=== PATIENT | male | born 1955 | race Caucasian/White ===

== ENCOUNTER 2017-10-07 11:06 | Inpatient (IN) | payer OTHER ==
[~2017-10-07] VITALS: Ht 172.7 cm; Wt 103.2 kg
--- NOTE | ~2017-10-07 | TEE ---
PATIENT:CATHY IGNACIO MEDICAL RECORD: [id number] LOCATION:[place] [address] AGE OF PATIENT: 62 ADMISSION DATE: 10/07/17 SEX: M REFERRING PHYSICIAN: INTERPRETING PHYSICIAN: ULISSES BROOKS MD TRANSESOPHAGEAL ECHOCARDIOGRAM Date: 10/09/17 JING CHARGE Y INDICATIONS: CABG PREMEDICATIONS: PATIENT'S RESPONSE PROCEDURE DOPPLER MEASUREMENTS: LVIT LA PA RA LVOT RVOT Asc. Ao AV Gradient Peak AV Mean AV Area MV Gradient Peak MV Mean MV Area INTERPRETATION: LVD: 3.4 LVS: 2.4 Doppler: 2-D: COLOR FLOW DOPPLER NORMAL SALINE STUDY: MISCELLANOUS: DIAGNOSIS: PLAN: Cashier Credit:Keiry Nguyen [employer] Coop: Kerry THOMPSON COMMENTS: DATE OF SERVICE: 10/09/2017 PROCEDURE: Transesophageal echo evaluation of valvular structures during bypass surgery. FINDINGS: 1. Left ventricular chamber size is within normal limits. Left ventricular systolic function is normal. Overall ejection fraction estimated 60%. 2. Left atrium, right atrium, and right ventricle chamber sizes are mildly TRANSESOPHAGEAL ECHOCARDIOGRAM REPORT [id number] CATHY IGNACIO dilated. 3. Valvular structures have normal structure and motion. 4. Doppler interrogation reveals iyeo-ra-bowavdfw mitral regurgitation, mild tricuspid regurgitation, no other valvular insufficiency or stenosis. 5. No evidence of pericardial effusion or left ventricular thrombus. TRANSINT:[id number] Voice Confirmation ID: [id number] DOCUMENT ID: [id number] at 1642 CC: [id number] DICTATION DATE: 10/09/17 1114 TAX ACCOUNTING MANAGER: 10/09/17 1349 ADM IN [place] [id number] [place] [address]
--- NOTE | ~2017-10-07 | OP ---
PATIENT NAME: CATHY IGNACIO MEDICAL RECORD: [id number] :59 LOCATION:[facility] D.CV05 ADMISSION DATE:10/07/17 SURGEON: COLE RFANCO MD DATE OF OPERATION: 10/09/2017 SURGEON: Cole Franco MD ANESTHESIA: General endotracheal, Dr. Hawkins. OPERATION PERFORMED: Coronary artery bypass: 1. Left internal thoracic to left anterior descending. 2. Reverse saphenous vein graft to the posterior descending coronary artery, reverse saphenous vein graft to the first diagonal coronary artery, and reverse saphenous vein graft to the ramus coronary artery. PREOPERATIVE DIAGNOSIS: Unstable angina. POSTOPERATIVE DIAGNOSIS: Unstable angina. INDICATION FOR OPERATION: Unstable angina, severe occlusive coronary artery disease and left main. FINDINGS AT OPERATION: The left internal thoracic and reverse saphenous vein segments were of excellent quality. The target vessels were severely and diffusely diseased. The 2 distal obtuse marginals were too small to graft. The posterior descending was graftable beyond the stenotic area. The left anterior descending and first diagonal were of good caliber as was the ramus coronary artery. ESTIMATED BLOOD LOSS: Cell Saver was used. DESCRIPTION OF PROCEDURE: After informed consent, adequate preoperative medication evaluation, the patient was brought to the operating room, placed on the table in the supine position. After induction of general endotracheal anesthesia and application of appropriate monitoring devices, the chest, neck, abdomen, and both legs were prepped and draped in a sterile field, utilizing Betadine scrub, alcohol, and Betadine solution. A Betadine-impregnated drape was also used. Saphenous vein was harvested from the right thigh and prepared for reverse saphenous vein grafting. Leg was closed over drains utilizing 3-0 Vicryl and skin louis. A median sternotomy incision was used and dissection carried down to the fascia. Hemostasis maintained with electrocautery. Sternum was divided. Innominate vein was identified and protected. Left internal thoracic was taken down and prepared for grafting. The patient was given a calculated dose of heparin, cannulated in the standard fashion utilizing 1 aortic, one two-stage cannula in the atrium and inferior vena cava. The patient was placed on cardiopulmonary bypass, cooled to 32 degrees centigrade. A cross clamp was placed just proximal to the aortic cannula and the patient was given cardioplegic solution through the aortic root. The patient was given a cold induction and cold maintenance. The patient was given cold intermittent cardioplegic solution throughout the procedure through the grafts, through the root or a combination of both. The first vessel to be grafted was the first diagonal. It was grafted end-to-side utilizing a running 7-0 Prolene suture. Graft was measured back to the aorta and the proximal anastomosis fashioned utilizing running 6-0 Prolene suture. Next, the posterior descending was grafted end-to-side utilizing running 7-0 Prolene suture. Graft was measured OPERATIVE REPORT [id number] CATHY IGNACIO back to the aorta and a proximal anastomosis fashioned utilizing running 6-0 Prolene suture. Next, the ramus was grafted end-to-side utilizing a running 7-0 Prolene suture. Graft was measured back to the aorta and a proximal anastomosis fashioned utilizing running 6-0 Prolene suture. Left internal thoracic was brought to the hole in pericardium, sutured to left anterior descending end-to-side utilizing a running 8-0 Prolene suture. All maneuvers to remove trapped air were performed. The patient was given warm cardioplegic reperfusion and controlled reperfusion. The patient rewarmed to 37 degrees centigrade. Two atrial and 2 ventricular pacing wires were placed in the heart and brought out through the epigastric area. The patient was weaned from cardiopulmonary bypass. After being stable off bypass, was given calculated dose of protamine to reverse the heparin. Hemostasis was achieved. A #40 right angle and #36 chest tubes were brought in through the epigastric area and placed in mediastinum. A separate left pleural Enio drain was placed and connected to bulb suction. Chest was again irrigated. Instrument count and sponge count were correct times 2. Chest was closed in layers utilizing #7 wire on the sternum, #2 Vicryl on linea alba and pectoralis fascia. Subcutaneous tissue was approximated with 3-0 Vicryl and skin approximated with 3-0 subcuticular Vicryl. Sterile dressings were applied. The patient tolerated the procedure well and transferred to cardiovascular recovery in stable condition. TRANSINT:[id number] Voice Confirmation ID: [id number] DOCUMENT ID: [id number] COLE FRANCO MD at 1230 CC: [id number] DICTATION DATE: 10/09/17 152 ASSAYER HELPER: 10/09/17 1536 DIS IN 10/15/17 [facility] [address] [place] [address]
--- NOTE | ~2017-10-07 | HEMODYNAMI ---
PATIENT:CATHY IGNACIO MEDICAL RECORD: [id number] : 59 LOCATION:[facility] ADMISSION DATE: 10/07/17 Generatedon:10/07/201714:20 Patient name: CATHY IGNACIO Patient #: [id number] SSN: : 1955 Date of study: 10/07/2017 Page: Of Hemodynamic Procedure Report Patient Data Patient Demographics Procedure consent was obtained First Name: CATHY Gender: Male Last Name: MATEUS : 1955 Patient #: [id number] Age: 62 year(s) Race: Unknown Additional ID: [id number] Contact details Address: [place] [address] State: [place] City: [place] Zip code: [address] Past Medical History Allergies: No known allergies Admission Admission Data Admission Date: 10/07/2017 Admission Time: 11:06 Height (in.): 69 BSA: 2.1 (m2) Height (cm.): 175.26 BMI: 30.57 (kg/m2) Weight (lbs.): 207 Weight (kg.): 93.89 Lab Results Lab Result Date: 10/07/2017 Lab Result Time: 0:00 Biochemistry Name Units Result Min Max BUN mg/dl 19 --(----)*- 7 18 Creatinine mg/dl 1.1 --(--*-)-- 0.6 1.3 CBC Name Units Result Min Max Hemoglobin g/dl 13.5 --(*---)-- 13.5 17.5 Procedure Procedure Types Cath Procedure Diagnostic Procedure LHC LHC w/Coronaries Procedure Description Procedure Date Procedure Date: 10/07/2017 Procedure Start Time: 13:52 Procedure End Time: 14:19 Procedure Staff Name Function Daniel Nguyen MD Performing Physician Ramsey Schulte RT Monitor Geronimo Valdez RN Nurse Carey Ruiz RT Scrub Procedure Data Cath Procedure Fluoroscopy Diagnostic fluoroscopy Total fluoroscopy Time: 6.7 time: 6.7 min min Diagnostic fluoroscopy Total fluoroscopy dose: 841 dose: 841 mGy mGy Contrast Material Contrast Material Type Amount (ml) Isovue 300 63 Entry Location Entry Primary Successful Side Size Upsize Upsize Entry Closure Woodard ccessful Closure Location (Fr) 1 (Fr) 2 (Fr) Remarks Device Remarks Radial Right 6 Fr Mechanical artery Short Compression Diagnostic catheters Device Type Used For End Catheter Placement DIAGNOSTIC Giovanni 110cm Left Coronary 5Fr catheter ([id number]) Angiography DIAGNOSTIC Baldwin 110cm 5 Left Coronary Fr catheter ([id number]) Angiography Procedure Complications No complications Procedure Medications Medication Administration Route Dosage 0.9% NaCl I.V. 100 ml/hr Oxygen etCO2 Nasal cannula 2 l/min Heparin Flush Bag added to field 2 bags (1000units/500ml NS) Lidocaine 2% added to field 20 Radial Cocktail added to field 1 syringe (Verapomil 2mg/Nitro 400mcg/Heparin 1500units) Versed I.V. 2 mg Fentanyl I.V. 100 mcg Versed I.V. 2 mg Radial Cocktail I.A. 1 syringe (Verapomil 2mg/Nitro 400mcg/Heparin 1500units) Versed I.V. 1 mg Fentanyl I.V. 100 mcg Versed I.V. 1 mg Hemodynamics Rest BSA: 2.1 (m2) O2 Consumption: Estimated: 254.09 (ml/min) O2 Consumption indexed: Estimated:121 (ml/min/m) Heart Rate: 79 (bpm) Pressure Samples Time Site Value (mmHg) Purpose Heart Use Rate(bpm) 13:59 LV 144/-2,18 EDP 79 13:59 AO 112/74(92) Pullback 73 13:59 LV 133/2,10 Pullback 73 Gradients Valve Time Site 1 Site 2 Mean SEP/DFP Peak To Heart Use (mmHg) (sec/min) Peak Rate (mmHg) (bpm) Aortic 13:59 LV AO 9 15 21 73 133/2,10 112/74(92) Calculations Valve P-P Mean Valve Index Valve Source Name Gradient Area Flow (cm2) Aortic 21 9 21 9 Snapshots Pre Cath Intra NCS Post Cath Vital Signs Time Heart Resp SPO2 etCO2 NIBP (mmHg) Rhythm Pain Sedation Rate (ipm) (%) (mmHg) Status Level (bpm) 13:49:53 77 19 100 34.3 139/88(113) NSR 0 (11) 10(A) , No pain 13:54:40 81 14 98 37.3 133/77(103) NSR 0 (11) 10(A) , No pain 13:59:27 78 16 96 35.8 113/66(102) NSR 0 (11) 10(A) , No pain 14:04:09 75 16 89 36.6 110/70(88) NSR 0 (11) 10(A) , No pain 14:08:50 68 19 96 35.1 128/74(107) NSR 0 (11) 10(A) , No pain 14:13:35 76 14 98 38.1 114/72(96) NSR 0 (11) 10(A) , No pain Medications Time Medication Route Dose Verified Delivered Reason Notes Effectiveness by by 13:46:27 0.9% NaCl I.V. 100 Geronimo Geronimo Per ml/hr José Miguel Valdez physician RN RN 13:46:36 Oxygen etCO2 2 l/min Geronimo Geronimo Per Nasal José Miguel Valdez physician cannula RN RN 13:46:48 Heparin Flush added 2 bags Geronimo Geronimo used for Bag to José Miguel Valdez procedure (1000units/500ml RN RN NS) 13:46:59 Lidocaine 2% added 20ml Geronimo Geronimo for local to vial Lorigan José Miguel anesthetic RN RN 13:47:14 Radial Cocktail added 1 Geronimo Geronimo used for (Verapomil to syringe José Miguel Valdez procedure 2mg/Nitro field NICOLAS RN 400mcg/Heparin 1500units) 13:53:14 Versed I.V. 2 mg Geronimo Geronimo for sedation José Miguel Valdez RN RN 13:53:20 Fentanyl I.V. 100 mcg Geronimo Geronimo for sedation José Miguel Valdez RN RN 13:56:08 Versed I.V. 2 mg Geronimo Geronimo for sedation José Miguel Valdez RN RN 13:57:24 Radial Cocktail I.A. 1 Geronimo Daniel for (Verapomil syringe José Miguel woods 2mg/Rene RN 400mcg/Heparin 1500units) 13:59:17 Versed I.V. 1 mg Geronimo Geronimo for sedation José Miguel Valdez RN RN 13:59:24 Fentanyl I.V. 100 mcg Geronimo Geronimo for sedation José Miguel Valdez RN RN 14:00:40 Versed I.V. 1 mg Geronimo Melton for sedation José Miguel Valdez RN automatic profile sander operator Log Time Note 13:22:13 Patient Height : 69 inches 13:22:16 Patient Weight : 207 lbs 13:29:26 Signed procedure consent form obtained from patient. 13:29:28 Time tracking: Regular hours (M-F 7:00 - 5:00) 13:29:32 Plan of Care:Hemodynamics will remain stable., Cardiac rhythm will remain stable., Comfort level will be maintained., Respiratory function will remain adequate., Patient/ family verbilizes understanding of procedure., Procedure tolerated without complication., Recovers from procedure without complications.. 13:30:34 H&P Date Dictated: 10/03/2017 Within 30 days and on chart., H&P Addendum completed by physician on day of procedure. (MUST COMPLETE FOR ALL OUTPATIENTS). 13:30:42 Patient allergic to No known allergies 13:30:48 Geronimo Valdez RN sent for patient. Start room use. 13:34:59 Lab Result : BUN 19 mg/dl 13:34:59 Lab Result : Hemoglobin 13.5 g/dl 13:34:59 Lab Result : Creatinine 1.1 mg/dl 13:36:19 Patient received from Pre/Post Procedure Room to CCL 2 Alert and oriented. Tansferred to table in Supine position. 13:36:20 Warm blankets applied, and giovani hugger turned on for patient comfort. 13:36:20 Correct patient and procedure confirmed by team. 13:36:21 ECG and BP/O2 sat monitors applied to patient. 13:46:27 0.9% NaCl 100 ml/hr I.V. was administered by Geronimo Valdez RN; Per physician; 13:46:36 Oxygen 2 l/min etCO2 Nasal cannula was administered by Geronimo Valdez RN; Per physician; 13:46:48 Heparin Flush Bag (1000units/500ml NS) 2 bags added to field was administered by Geronimo Valdez RN; used for procedure; 13:46:59 Lidocaine 2% 20ml vial added to field was administered by Geronimo Valdez RN; for local anesthetic; 13:47:14 Radial Cocktail (Verapomil 2mg/Nitro 400mcg/Heparin 1500units) 1 syringe added to field was administered by Geronimo Valdez RN; used for procedure; 13:47:20 Vital chart was started 13:50:36 Baseline sample Acquired. 13:50:38 Rhythm: sinus rhythm 13:50:39 Full Disclosure recording started 13:50:40 Pre-procedure instructions explained to patient. 13:50:40 Pre-op teaching completed and patient verbalized understanding. 13:50:42 Family in waiting room. 13:50:44 Patient NPO since Midnight. 13:50:47 Is the patient allergic to Iodine/contrast media? No. 13:50:50 Is patient on blood thinner?No 13:50:52 Patient diabetic? No. 13:50:56 ----Pre-sedation anethsthesia assessment.---- 13:50:58 Previous problem with sedation/anesthesia? No ? 13:50:59 Snore? No 13:51:00 Sleep apnea? No 13:51:01 Deviated septum? No 13:51:02 Opens mouth fully? Yes 13:51:04 Sticks out tongue? Yes 13:51:06 Airway obstruction? No ? 13:51:08 Dentures? No ? 13:51:10 Pre procedure: right dorsailis pedis pulse 2+ Normal; easily identifiable; not easily obliterated 13:51:13 Modified Dinh's test Ulnar < 7 seconds 13:51:16 Patient pain scale 0/10 ?. 13:51:20 IV patent on arrival in left antecubital with 0.9% NaCl at 10ml/hr. 13:51:25 Lab results completed and on chart. 13:51:30 Right Radial & Right Groin area was prepped with chlora-prep and draped in sterile fashion 13:51:31 Alarms reviewed by R. N. 13:51:32 Sharps counted by scrub and verified by R.N. 13:51:34 Physician arrived 13:51:34 --------ALL STOP TIME OUT------ 13:51:35 Final Timeout: patient, procedure, and site verified with staff and physician. All members of the team are in agreement. 13:51:36 Right Radial & Right Groin site verified by team. 13:51:39 Physical assessment completed. ASA score P 2 - A patient with mild systemic disease as per Daniel Nguyen MD. 13:51:42 Sedation plan: IV Moderate Sedation Medication:Versed, Fentanyl 13:51:47 Use device set Radial Dx or PCI 13:51:49 ACIST Syringe (28617) opened to sterile field. 13:51:50 Medline Cath Pack ([id number]) opened to sterile field. 13:51:50 Bag Decanter (2002S) opened to sterile field. 13:51:51 DIAGNOSTIC WIRE .035 260cm J wire (500903) opened to sterile field. 13:51:52 ACIST Hand Control (96145) opened to sterile field. 13:51:54 ACIST Manifold (01529) opened to sterile field. 13:51:55 MBrace Wrist Support ([id number]) opened to sterile field. 13:51:58 TR BAND Standard ([id number]) opened to sterile field. 13:52:00 SHEATH 6Fr Prelude Radial ([id number]) opened to sterile field. 13:52:05 Procedure started. 13:53:14 Versed 2 mg I.V. was administered by Geronimo Valdez RN; for sedation; 13:53:20 Fentanyl 100 mcg I.V. was administered by Geronimo Valdez RN; for sedation; 13:54:30 Zero performed for pressure channel P1 13:54:34 Zero performed for pressure channel P1 13:54:58 A 6 Fr Short sheath was inserted into the Right Radial artery 13:56:08 Versed 2 mg I.V. was administered by Geronimo Valdez RN; for sedation; 13:57:24 Radial Cocktail (Verapomil 2mg/Nitro 400mcg/Heparin 1500units) 1 syringe I.A. was administered by Daniel Nguyen MD; for vasodilation; 13:58:21 A DIAGNOSTIC Giovanni 110cm 5Fr catheter (586484) was advanced over the wire and used for Left Coronary Angiography. 13:59:09 LV angiography performed. 13:59:17 Versed 1 mg I.V. was administered by Geronimo Valdez RN; for sedation; 13:59:17 LV hemodynamics recorded. 13:59:24 Fentanyl 100 mcg I.V. was administered by Geronimo Valdez RN; for sedation; 13:59:41 EF : 60 % 14:00:40 Versed 1 mg I.V. was administered by Geronimo Valdez RN; for sedation; 14:02:10 RCA angiography performed. 14:02:17 Catheter removed. 14:02:59 A DIAGNOSTIC Baldwin 110cm 5 Fr catheter (722589) was advanced over the wire and used for Left Coronary Angiography. 14:05:50 LCA angiography performed. 14:05:52 Catheter removed. 14:06:35 GUIDE 6FR EBU 3.5 catheter ([id number]) opened to sterile field. 14:06:41 LCA angiography performed. 14:12:09 Catheter removed. 14:12:26 Sheath removed intact; hemostasis achieved with Mechanical Compression to the Right Radial artery. 14:12:28 Procedure ended.(Physican Out) 14:12:41 Fluoroscopy time 06.70 minutes. 14:12:47 Flurop Dose total: 841 14:12:47 Fluoroscopy dose: 841 mGy 14:12:56 Contrast amount:Isovue 300 63ml. 14:15:41 Sharps counted by scrub and verified by R.N. 14:15:56 TR band inflated with 12cc of air. 14:15:59 Insertion/operative site no bleeding no hematoma. 14:16:07 Post right radial artery:stable 14:16:08 Post Procedure Pulses reassessed and unchanged 14:16:12 Post procedure rhythm: sinus rhythm 14:16:13 Post procedure instruction explained to patient.Patient verbalizes understanding. 14:16:17 Procedure and supply charges have been captured, reviewed, submitted and are correct. 14:16:37 Procedure Complication : No complications 14:16:39 Vital chart was stopped 14:16:40 See physician's report for complete and final results. 14:19:30 Report given to Pre/Post Procedure Room. 14:19:35 Patient transfered to Pre/Post Procedure Room with Stretcher. 14:19:38 Procedure ended. 14:19:38 Full Disclosure recording stopped 14:19:42 End room use (Document Last) Device Usage Item Name Manufacture Quantity Catalog Number Hospital Part Current M inimal Lot# / Charge Number Stock Stock Serial# Code ACIST Syringe Acist 1 38659 338029 281517 [id number] 2 0 (22629) [employer] Medline Cath Cardinal 1 [id number] 901214 07242 737390 5 real trends [facility] ([id number]) Bag Decanter Microtek 1 071969 13589 400113 5 () Medical Inc. DIAGNOSTIC WIRE [facility] [place] 1 266379 706147 844471 283088 3 0 .035 260cm J wire (263827) ACIST Hand Acist 1 75295 711703 297244 475573 5 Control (44446) Medical Systems Inc ACIST Manifold Acist 1 28187 007879 127093 076096 5 (31686) Medical Systems Inc MBrace Wrist Advanced 1 140-0250-00 661933 02383 721778 5 Support Vascular ([id number]) Dynamics TR BAND Terumo 1 [id number] 405634 928174 679947 4 0 Standard ([id number]) SHEATH 6Fr Merit 1 [id number] 585657 739375 370775 5 Prelude Radial Medical ([id number]) DIAGNOSTIC Terumo 1 40-9183 037731 942664 007969 5 Giovanni 110cm 5Fr catheter (311908) DIAGNOSTIC Terumo 1 40-4973 075971 037671 894794 5 Baldwin 110cm 5 Fr catheter (378835) GUIDE 6FR EBU Medtronic 1 [id number] 579586 58136 010651 3 3.5 catheter ([id number]) Signature Audit [place] Stage Time Signature Unsigned Intra-Procedure 10/07/2017 Ramsey Schulte RT(R) 2:20:31 PM Signatures Monitor : Ramsey Schulte RT Signature : Date : Time : [place] [id number] [facility] [address]
[2017-10-07] MEDS ORDERED: BAYER CHEWABLE81 MG PO (11:34)
[2017-10-07] MEDS ORDERED: ZOCOR20 MG PO (11:35)
[2017-10-07] MEDS ORDERED: COZAAR100 MG PO (11:35)
[2017-10-07] MEDS ORDERED: AMBIEN10 MG PO (11:36)
[2017-10-07 11:43] VITALS: BP 133/91; BMI 31.5
[2017-10-07 12:18] LABS: BASOPHILS 0.5 % (0-2); EOSINOPHILS 2.3 % (0-7); HEMOGLOBIN 13.5 g/dL (13.5-17.5); IMMATURE GRANULOCYTES 0.2 % (0-5); LYMPHOCYTES 25.3 % (15-50); MCH 33.4 pg (26.0-34.0); MCHC 34.6 g/dL (31.0-37.0); MCV 96.5 fL (80.0-100.0); MEAN PLATELET VOLUME 9.4 fL (7.4-10.4); MONOCYTES 10.4 % (2-11); NEUTROPHILS 61.3 % (40-80); PLATELET COUNT 260 10x3/uL (130-400); RBC 4.04 10x6/uL (4.20-6.10); WBC 5.8 10x3/uL (4.8-10.8)
[2017-10-07 12:41] LABS: ANION GAP 14.4 mmol/L (8-16); CALCIUM 8.8 mg/dL (8.5-10.1); CARBON DIOXIDE 26.4 mmol/L (21.0-32.0); CREATININE - SERUM 1.1 mg/dL (0.6-1.3); POTASSIUM - SERUM 3.8 mmol/L (3.5-5.1)
[2017-10-07 18:01] VITALS: BP 142/77; BMI 31.5
[2017-10-07 20:00] VITALS: BP 136/78
[2017-10-08 04:17] VITALS: BP 146/92
[2017-10-08 07:47] VITALS: BP 132/77
[2017-10-08 11:00] VITALS: BP 136/71
[2017-10-08 11:36] LABS: BASOPHILS 0.3 % (0-2); EOSINOPHILS 1.1 % (0-7); HEMATOCRIT 41.6 % (42.0-54.0); HEMOGLOBIN 14.3 g/dL (13.5-17.5); IMMATURE GRANULOCYTES 0.3 % (0-5); LYMPHOCYTES 19.7 % (15-50); MCH 33.3 pg (26.0-34.0); MCHC 34.4 g/dL (31.0-37.0); MCV 96.7 fL (80.0-100.0); MEAN PLATELET VOLUME 9.7 fL (7.4-10.4); MONOCYTES 5.9 % (2-11); NEUTROPHILS 72.7 % (40-80); PLATELET COUNT 303 10x3/uL (130-400); RDW 12.9 % (11.5-14.5); WBC 7.1 10x3/uL (4.8-10.8)
[2017-10-08 11:47] LABS: ALBUMIN 3.7 g/dL (3.4-5.0); ALKALINE PHOSPHATASE 57 U/L (46-116); ALT (SGPT) 33 U/L (10-68); BILIRUBIN - TOTAL 0.61 mg/dL (0.2-1.3); CALC OSMOLALITY 278 mosm/kg (275-300); CALCIUM 8.6 mg/dL (8.5-10.1); CARBON DIOXIDE 26.2 mmol/L (21.0-32.0); CHLORIDE - SERUM 106 mmol/L (98-107); CHOLESTEROL, TOTAL 189 mg/dL (0-200); GLUCOSE 103 mg/dL (74-106); PHOSPHOROUS 2.6 mg/dL (2.5-4.9); POTASSIUM - SERUM 3.7 mmol/L (3.5-5.1); SODIUM 139 mmol/L (136-145); T4 THYROXIN - FREE 1.05 ng/dL (0.76-1.46); THYROID STIMULATING HORMONE 1.41 uIU/mL (0.36-3.74); URIC ACID 4.3 mg/dL (2.6-7.2); eGFR NON AFRICAN AMERICAN 81 mL/min (90-120)
[2017-10-08 11:50] LABS: UREA NITROGEN 14 mg/dL (7-18)
[2017-10-08 12:07] LABS: APTT 27.3 SECONDS (22.8-39.4); INR 1.05 (0.85-1.17); PROTIME 13.1 SECONDS (11.6-15.0)
[2017-10-08 12:18] LABS: APPEARANCE CLEAR (CLEAR); BILIRUBIN NEGATIVE (NEGATIVE); COLOR YELLOW (YELLOW); GLUCOSE NEGATIVE (NEGATIVE); KETONE MODERATE mg/dL (NEGATIVE); NITRITE NEGATIVE (NEGATIVE); PROTEIN NEGATIVE (NEGATIVE); UROBILINOGEN NORMAL (NORMAL)
[2017-10-08 20:00] VITALS: BP 165/94
[2017-10-09] VITALS (35 sets, daily range): BP systolic 90–155; BP diastolic 46–94
[2017-10-09] MEDS ORDERED: OMEPRAZOLE20 M1 PO (00:31)
[2017-10-09] MEDS ORDERED: XANAX0.5 MG PO (00:32)
[2017-10-09 08:28] LABS: PLT FUNCT.(P2Y12) PLAVIX 250 PRU (194-418)
[2017-10-09 14:49] LABS: MCH 32.6 pg (26.0-34.0); MCHC 33.9 g/dL (31.0-37.0); MCV 96.4 fL (80.0-100.0); MEAN PLATELET VOLUME 9.4 fL (7.4-10.4); RDW 12.6 % (11.5-14.5)
[2017-10-09 14:51] LABS: HEMATOCRIT 31.9 % (42.0-54.0); HEMOGLOBIN 10.8 g/dL (13.5-17.5); RBC 3.31 10x6/uL (4.20-6.10); WBC 12.1 10x3/uL (4.8-10.8)
[2017-10-09 14:58] LABS: APTT 31.7 SECONDS (22.8-39.4)
[2017-10-09 15:10] LABS: INR 1.43 (0.85-1.17)
[2017-10-09 15:20] LABS: CARBON DIOXIDE 28.5 mmol/L (21.0-32.0); CHLORIDE - SERUM 110 mmol/L (98-107); CREATININE - SERUM 0.8 mg/dL (0.6-1.3); POTASSIUM - SERUM 3.7 mmol/L (3.5-5.1); SODIUM 147 mmol/L (136-145); eGFR NON AFRICAN AMERICAN > 90 mL/min (90-120)
[2017-10-09 15:21] LABS: CALC OSMOLALITY 294 mosm/kg (275-300); GLUCOSE 175 mg/dL (74-106); UREA NITROGEN 10 mg/dL (7-18)
[2017-10-10] VITALS (82 sets, daily range): BP systolic 88–135; BP diastolic 45–79
[2017-10-10 06:21] LABS: HEMATOCRIT 20.7 % (42.0-54.0); MCH 32.9 pg (26.0-34.0); MCHC 33.8 g/dL (31.0-37.0); MCV 97.2 fL (80.0-100.0); MEAN PLATELET VOLUME 9.4 fL (7.4-10.4); RDW 13.4 % (11.5-14.5)
[2017-10-10 06:26] LABS: WBC 7.6 10x3/uL (4.8-10.8)
[2017-10-10 06:27] LABS: RBC 2.13 10x6/uL (4.20-6.10)
[2017-10-10 06:48] LABS: ALBUMIN 4.4 g/dL (3.4-5.0); BILIRUBIN - TOTAL 0.67 mg/dL (0.2-1.3); CALCIUM 7.8 mg/dL (8.5-10.1); CARBON DIOXIDE 25.6 mmol/L (21.0-32.0); PROTEIN - SERUM 6.1 g/dL (6.4-8.2)
[2017-10-10 06:50] LABS: ANION GAP 15.7 mmol/L (8-16); CREATININE - SERUM 1.8 mg/dL (0.6-1.3); POTASSIUM - SERUM 4.3 mmol/L (3.5-5.1)
[2017-10-11] VITALS (73 sets, daily range): BP systolic 106–145; BP diastolic 43–93
[2017-10-11 05:55] LABS: MCH 33.8 pg (26.0-34.0); MCHC 35.1 g/dL (31.0-37.0); MCV 96.5 fL (80.0-100.0); MEAN PLATELET VOLUME 10.1 fL (7.4-10.4); RDW 15.8 % (11.5-14.5)
[2017-10-11 06:14] LABS: HEMATOCRIT 25.1 % (42.0-54.0); HEMOGLOBIN 8.8 g/dL (13.5-17.5); RBC 2.6 10x6/uL (4.20-6.10); WBC 9.7 10x3/uL (4.8-10.8)
[2017-10-11 06:17] LABS: ALBUMIN 3.4 g/dL (3.4-5.0); ANION GAP 14.9 mmol/L (8-16); BILIRUBIN - TOTAL 0.87 mg/dL (0.2-1.3); CREATININE - SERUM 1.5 mg/dL (0.6-1.3); POTASSIUM - SERUM 3.9 mmol/L (3.5-5.1); PROTEIN - SERUM 5.8 g/dL (6.4-8.2)
[2017-10-11 06:28] LABS: CALCIUM 6.5 mg/dL (8.5-10.1)
[2017-10-12] VITALS (33 sets, daily range): BP systolic 109–155; BP diastolic 68–89
[2017-10-12 06:05] LABS: HEMATOCRIT 27.2 % (42.0-54.0); MCH 31.7 pg (26.0-34.0); MCHC 33.1 g/dL (31.0-37.0); MCV 95.8 fL (80.0-100.0); MEAN PLATELET VOLUME 9.9 fL (7.4-10.4); RBC 2.84 10x6/uL (4.20-6.10); RDW 15.1 % (11.5-14.5); WBC 8.8 10x3/uL (4.8-10.8)
[2017-10-12 06:27] LABS: ALBUMIN 3.3 g/dL (3.4-5.0); ALKALINE PHOSPHATASE 34 U/L (46-116); ALT (SGPT) 107 U/L (10-68); CALCIUM 7.7 mg/dL (8.5-10.1); CARBON DIOXIDE 30.4 mmol/L (21.0-32.0); CHLORIDE - SERUM 100 mmol/L (98-107); POTASSIUM - SERUM 3.6 mmol/L (3.5-5.1); PROTEIN - SERUM 6.4 g/dL (6.4-8.2); SODIUM 136 mmol/L (136-145); UREA NITROGEN 17 mg/dL (7-18); eGFR NON AFRICAN AMERICAN 81 mL/min (90-120)
[2017-10-12 06:28] LABS: CALC OSMOLALITY 275 mosm/kg (275-300); GLUCOSE 127 mg/dL (74-106)
[2017-10-13] VITALS (27 sets, daily range): BP systolic 121–153; BP diastolic 64–86
[2017-10-13 06:34] LABS: HEMATOCRIT 26.6 % (42.0-54.0); HEMOGLOBIN 8.7 g/dL (13.5-17.5); MCH 31.4 pg (26.0-34.0); MCHC 32.7 g/dL (31.0-37.0); RBC 2.77 10x6/uL (4.20-6.10); RDW 14.7 % (11.5-14.5); WBC 6.7 10x3/uL (4.8-10.8)
[2017-10-13 06:53] LABS: ALKALINE PHOSPHATASE 37 U/L (46-116); ALT (SGPT) 112 U/L (10-68); BILIRUBIN - TOTAL 0.69 mg/dL (0.2-1.3); CALC OSMOLALITY 272 mosm/kg (275-300); CALCIUM 7.7 mg/dL (8.5-10.1); CARBON DIOXIDE 30.7 mmol/L (21.0-32.0); CHLORIDE - SERUM 99 mmol/L (98-107); CREATININE - SERUM 0.8 mg/dL (0.6-1.3); GLUCOSE 105 mg/dL (74-106); POTASSIUM - SERUM 3.5 mmol/L (3.5-5.1); SODIUM 136 mmol/L (136-145); UREA NITROGEN 16 mg/dL (7-18); eGFR NON AFRICAN AMERICAN > 90 mL/min (90-120)
[2017-10-14] VITALS (24 sets, daily range): BP systolic 103–152; BP diastolic 68–87; Ht 172.7 cm; Wt 103.2 kg
[2017-10-14 06:38] LABS: ALBUMIN 2.8 g/dL (3.4-5.0); ALKALINE PHOSPHATASE 39 U/L (46-116); ALT (SGPT) 88 U/L (10-68); BILIRUBIN - TOTAL 0.81 mg/dL (0.2-1.3); CALC OSMOLALITY 275 mosm/kg (275-300); CALCIUM 8.1 mg/dL (8.5-10.1); CARBON DIOXIDE 30.4 mmol/L (21.0-32.0); CHLORIDE - SERUM 99 mmol/L (98-107); CREATININE - SERUM 0.9 mg/dL (0.6-1.3); GLUCOSE 94 mg/dL (74-106); POTASSIUM - SERUM 3.3 mmol/L (3.5-5.1); PROTEIN - SERUM 5.7 g/dL (6.4-8.2); SODIUM 138 mmol/L (136-145); UREA NITROGEN 13 mg/dL (7-18); eGFR NON AFRICAN AMERICAN > 90 mL/min (90-120)
[2017-10-14 06:52] LABS: HEMATOCRIT 27.3 % (42.0-54.0); MCH 31.3 pg (26.0-34.0); MCV 94.8 fL (80.0-100.0); MEAN PLATELET VOLUME 9.8 fL (7.4-10.4); RBC 2.88 10x6/uL (4.20-6.10); RDW 14.2 % (11.5-14.5); WBC 6.9 10x3/uL (4.8-10.8)
[2017-10-15] VITALS (10 sets, daily range): BP systolic 119–146; BP diastolic 71–84
[2017-10-15 05:56] LABS: BASOPHILS 0.3 % (0-2); HEMATOCRIT 30.1 % (42.0-54.0); HEMOGLOBIN 9.9 g/dL (13.5-17.5); IMMATURE GRANULOCYTES 1.8 % (0-5); MCH 31.3 pg (26.0-34.0); MCHC 32.9 g/dL (31.0-37.0); MCV 95.3 fL (80.0-100.0); MEAN PLATELET VOLUME 9.1 fL (7.4-10.4); MONOCYTES 17.9 % (2-11); RBC 3.16 10x6/uL (4.20-6.10); RDW 14.4 % (11.5-14.5); WBC 7.2 10x3/uL (4.8-10.8)
[2017-10-15 05:58] LABS: PLATELET COUNT 324 10x3/uL (130-400)
[2017-10-15 06:01] LABS: CALC OSMOLALITY 273 mosm/kg (275-300); CALCIUM 8.3 mg/dL (8.5-10.1); CARBON DIOXIDE 29.7 mmol/L (21.0-32.0); CHLORIDE - SERUM 98 mmol/L (98-107); GLUCOSE 101 mg/dL (74-106); POTASSIUM - SERUM 3.4 mmol/L (3.5-5.1); SODIUM 137 mmol/L (136-145); UREA NITROGEN 13 mg/dL (7-18); eGFR NON AFRICAN AMERICAN 81 mL/min (90-120)
[2017-10-15] MEDS ORDERED: CORDARONE200 MG PO (10:36)
[2017-10-15] MEDS ORDERED: HEMOCYTE PLUS C1 CAP PO (10:36)
[2017-10-15] MEDS ORDERED: LASIX40 MG PO (10:41)
[2017-10-15] MEDS ORDERED: K-DUR20 MEQ PO (10:41)
[2017-10-15] MEDS ORDERED: PERCOCET 10/3251 TA1 PO (10:43)
[2017-10-15] MEDS ORDERED: ZOFRAN4 MG PO (14:25)
== END 2017-10-15 14:46 | disposition home or self-care (01) | DRG 234 ==
LOC: D.CATH 11:06 → D.M2 17:38 → D.CVICU 17:39 → D.CATH 17:39 → D.M2 17:39 → D.CVICU 10-09 08:50
PROVIDERS: Internal Medicine Cardiovascular Disease
PROC: B2151ZZ Fluoroscopy of Left Heart using Low Osmolar Contrast (ICD-10-PCS; 2017-10-07)
PROC: 4A023N7 Measurement of Cardiac Sampling and Pressure, Left Heart, Percutaneous Approach (ICD-10-PCS; 2017-10-07)
PROC: B2111ZZ Fluoroscopy of Multiple Coronary Arteries using Low Osmolar Contrast (ICD-10-PCS; principal; 2017-10-07 13:00)
PROC: 02100ZC Bypass Coronary Artery, One Artery from Thoracic Artery, Open Approach (ICD-10-PCS; 2017-10-09)
PROC: 021209W Bypass Coronary Artery, Three Arteries from Aorta with Autologous Venous Tissue, Open Approach (ICD-10-PCS; 2017-10-09)
PROC: 06BP0ZZ Excision of Right Saphenous Vein, Open Approach (ICD-10-PCS; 2017-10-09)
PROC: 5A1221Z Performance of Cardiac Output, Continuous (ICD-10-PCS; 2017-10-09)
PROC: B245ZZ4 Ultrasonography of Left Heart, Transesophageal (ICD-10-PCS; 2017-10-09)
DX: I25.118 Atherosclerotic heart disease of native coronary artery with other forms of angina pectoris (principal); D62 Acute posthemorrhagic anemia; I10 Essential (primary) hypertension; E78.5 Hyperlipidemia, unspecified; I48.0 Paroxysmal atrial fibrillation; R94.30 Abnormal result of cardiovascular function study, unspecified

== ENCOUNTER → 2017-10-31 10:36 | Outpatient (CLI) | payer OTHER ==
[2017-10-14 14:21] VITALS: BMI 34.8
[~2017-10-31 10:36] MED LIST: AMBIEN10 MG PO; BAYER CHEWABLE81 MG PO; CORDARONE200 MG PO; COZAAR100 MG PO; HEMOCYTE PLUS C1 CAP PO; K-DUR20 MEQ PO; LASIX40 MG PO; OMEPRAZOLE20 M1 PO; PERCOCET 10/3251 TA1 PO; XANAX0.5 MG PO; ZOCOR20 MG PO; ZOFRAN4 MG PO
[2017-10-31 11:07] LABS: HEMATOCRIT 33.6 % (42.0-54.0); HEMOGLOBIN 11.3 g/dL (13.5-17.5); MCH 31.6 pg (26.0-34.0); MCHC 33.6 g/dL (31.0-37.0); MCV 93.9 fL (80.0-100.0); RBC 3.58 10x6/uL (4.20-6.10); RDW 13.8 % (11.5-14.5)
[2017-10-31 11:24] LABS: ALBUMIN 3.7 g/dL (3.4-5.0); ANION GAP 14.6 mmol/L (8-16); BILIRUBIN - TOTAL 0.53 mg/dL (0.2-1.3); CALCIUM 9.1 mg/dL (8.5-10.1); CARBON DIOXIDE 26.3 mmol/L (21.0-32.0); CREATININE - SERUM 1.3 mg/dL (0.6-1.3); POTASSIUM - SERUM 3.9 mmol/L (3.5-5.1); PROTEIN - SERUM 7.8 g/dL (6.4-8.2)
== END | disposition home or self-care (01) ==
LOC: D.RAD 09:00
PROVIDERS: Internal Medicine Cardiovascular Disease
DX: J91.8 Pleural effusion in other conditions classified elsewhere (principal); D64.9 Anemia, unspecified

== ENCOUNTER → 2018-11-04 09:30 | Outpatient (CLI) | payer OTHER ==
[2017-10-14 14:21] VITALS: BMI 34.8
== END | disposition home or self-care (01) ==
LOC: D.HCCARDIO 09:30
PROVIDERS: ATTEND Internal Medicine Cardiovascular Disease
DX: I25.810 Atherosclerosis of coronary artery bypass graft(s) without angina pectoris (principal)

== ENCOUNTER → 2020-05-18 08:45 | Outpatient (CLI) | payer OTHER ==
[2017-10-14 14:21] VITALS: BMI 34.8
== END | disposition home or self-care (01) ==
LOC: D.HCCECHO 08:30
PROVIDERS: ATTEND Internal Medicine Cardiovascular Disease
DX: I25.10 Atherosclerotic heart disease of native coronary artery without angina pectoris (principal)